=== PATIENT | female | born 1965 | race Caucasian/White ===

== ENCOUNTER 2022-12-16 12:47 | Emergency (ER) | payer OTHER, SELFPAY ==
[2022-12-16 12:58] VITALS: BP 153/80; PULSE 71; RESP 18; TEMP 36.6; O2SAT 96; BMI 35.5
--- NOTE | 2022-12-16 13:30 | ED.GENADULT ---
HPI - General Adult General Chief complaint: Back Injury/Pain Stated complaint: L side back/leg pain Time Seen by Provider: 12/16/22 12:48 History of Present Illness HPI narrative: Priya who goes by Mavis is a pleasant 57 year white female who presents with left low back pain and lateral hip pain and leg pain down to her lateral thigh calf. This started on Wednesday. No exacerbating injury. She had a visit with the [facility] yesterday and got an x-ray that showed no significant degenerative disc disease or fracture on x-ray, and she was given prednisone and a muscle relaxant. She has not noticed much effect she has been good him a in a good amount of pain. She has had no weakness in the leg, no bowel or bladder incontinence fever chills perineal numbness. She has had no history of back problems in the past. She has a regular walker, she was able to walk this morning and felt fairly decent. She has taken narcotics in the past the cause some crawling skin type feeling but had no true anaphylactic allergy. Related Data Previous Rx's Medication Instructions Recorded hydrocodone 7.5 mg-acetaminophen 1 tab PO Q8H PRN pain #14 tabs 12/16/22 325 mg tablet Allergies Allergy/AdvReac Type Severity Reaction Status Date / Time oxycodone Allergy Verified 12/16/22 12:57 Review of Systems Status of ROS: Reports: 6 or more systems reviewed and unremarkable except as noted in History and below Narrative: Patient does have history of Crohn's disease PFSH PFSH Social History What is your current living situation: I presently have a place to live Problems where you live: no known problems Problems where you live details: NA In the past 12 months, utilities in danger of being shut off: no In the past 12 mos, have been you worried that your food would run out before you had money to buy more?: never true In the past 12 mos, the food you bought just didn't last and you didn't have money to buy more?: never true Smoking Status: Never smoker Do you use any of these nicotine containing products: None Second hand tobacco smoke exposure: No How often do you have a drink containing alcohol: monthly or less How many standard drinks containing alcohol do you have on a typical day: 1 or 2 How often do you have six or more drinks on one occasion: Never AUDIT-C Alcohol total score: 1 Non-prescribed substance use: denies use Caffeine: No How often does anyone, including family, friends and others, physically hurt you: How often does anyone, including family, friends and others, insult or talk down to you: How often does anyone, including family, friends and others, threaten you with harm: How often does anyone, including family, friends and others, scream or curse at you: service: No Exam Narrative: Exam Narrative: Objective: Patient's vital signs look largely unremarkable other than slightly elevated systolic pressure Alert orient x3 no marked distress She has normal strength sensation lower extremities positive straight leg raise on the left, mild greater trochanteric bursitis tenderness on the left, some low back tenderness as well on the left No swelling or edema in the left lower extremity Const: Vital Signs, click to edit/add: Vital Signs - 24 hr 12/16/22 12:58 Temperature 98 F Pulse Rate [Pulse Oximeter] 71 Respiratory Rate 18 Blood Pressure [Ri ght Upper Arm] 153/80 H Pulse Oximetry 96 Oxygen Delivery Me thod Room Air Course Vital Signs Vital signs: Initial Vital Signs Temperature 98 F 12/16/22 12:58 Temperature Source Temporal Artery Scan 12/16/22 12:58 Pulse Rate 71 12/16/22 12:58 Pulse Rhythm Regular 12/16/22 12:58 Respiratory Rate 18 12/16/22 12:58 Blood Pressure 153/80 H 12/16/22 12:58 Blood Pressure Mean 104 12/16/22 12:58 Blood Pressure Position Supine 12/16/22 12:58 Pulse Oximetry 96 12/16/22 12:58 Oxygen Delivery Method Room Air 12/16/22 12:58 Vital Signs Temperature 98 F 12/16/22 12:58 Pulse Rate 71 12/16/22 12:58 Respiratory Rate 18 12/16/22 12:58 Blood Pressure 153/80 H 12/16/22 12:58 Pulse Oximetry 96 12/16/22 12:58 Oxygen Delivery Method Room Air 12/16/22 12:58 Temperature 98 F 12/16/22 12:58 Pulse Rate 71 12/16/22 12:58 Respiratory Rate 18 12/16/22 12:58 Blood Pressure 153/80 H 12/16/22 12:58 Pulse Oximetry 96 12/16/22 12:58 Oxygen Delivery Method Room Air 12/16/22 12:58 Medical Decision Making MDM Narrative Medical decision making narrative: [age] year white female with 3 day history of low back pain on the left left lateral hip and thigh and lateral calf pain consistent with radiculitis. Patient has had a reassuring x-ray. She has no worrisome symptoms such as fever chills weight loss bowel or bladder symptoms. No perineal numbness. At this point I think symptomatic management be appropriate will give her morphine 7.5 mg IM, she will continue the Medrol Dosepak that she is on currently, she has Celebrex at home and can take 200 mg 1-2 a day for the next week. Would hold off on physical therapy at this time but may start within 3-5 days if she is feeling better which is anticipated. If she gets worse or she has leg weakness or intractable pain then she needs the more urgent MRI scan of her back and she could return to the ED for this. She had her were comfortable plan. Position of comfort, regular walking would be appropriate at this time, ice to the back and regular basis Discharge Plan Discharge Clinical Impression: Lumbar radiculopathy Patient Disposition: Home w/ Parent or Adult Condition: Stable Additional Instructions: Position of comfort, regular walking, you will be sedated today from the medications so be careful with any walking, stairs, avoid driving or ladders. Recommend to use Celebrex once to twice a day for the next week. Preferably once a day, finish the Medrol Dosepak, you may avoid using the muscle relaxant at this time. Recheck with regular doctor as planned, return to ED if worsening pain in the leg, loss of control of bowel or bladder, or worsening back pain or leg pain. Activity Level: Light activity Discharge Diet: Regular Prescriptions: New hydrocodone-acetaminophen 7.5-325 mg tablet 1 tab PO Q8H PRN (Reason: pain) Qty: 14 0RF Follow Up/Referrals: Estefania Shelby MD [Primary Care Provider] - Stand Alone Forms: Smart Picture Tech Info Instructions
[2022-12-16] MEDS: MORPHINE 10 MG/ML inj 7.5 MG IM (13:41)
== END 2022-12-16 13:49 | disposition home or self-care (01) ==
PROVIDERS: Emergency Provider Family Medicine; PCP Family Medicine
DX: M54.16 Radiculopathy, lumbar region (principal); M54.50 Low back pain, unspecified
CPT/HCPCS: 96372; 99283; 99284; J2270

== ENCOUNTER 2022-12-16 14:40 | Observation (INO) | payer OTHER, SELFPAY ==
[2022-12-16] VITALS (8 sets, daily range): BP systolic 133–142; BP diastolic 79–86; PULSE 58–96; RESP 16–26; TEMP 36.6–37; O2SAT 92–97; BMI 36.0
--- NOTE | 2022-12-16 14:47 | CRLHL7_ITS ---
For Patients: As a result of the Century Cures Act, medical imaging exams and procedure reports are released immediately into your electronic medical record. You may view this report before your referring provider. If you have questions, please contact your health care provider. INDICATION: Low back and left leg pain. TECHNIQUE: Multiplanar multisequence noncontrast MR images acquired through the lumbar spine. COMPARISON: MRI lumbar spine 10/18/2015. FINDINGS: The lumbar lordosis is preserved. Vertebral heights maintained. No acute fracture or spondylolisthesis. No T1 hypointense marrow replacing lesions. Normal conus terminates at L1. T12-L1: No spinal canal or neural foraminal narrowing. L1-2: Mild disc degeneration. Annular bulge. No spinal canal or neural foraminal narrowing. L2-3: Mild disc degeneration. Sella, superiorly migrated left foraminal disc protrusion measuring 3 mm in short axis contacts they exiting left L2 nerve root. No spinal canal narrowing. Moderate left without right neural foraminal narrowing. L3-4: Aiyq-dr-clnpfnbw disc degeneration. Mild vertebral body edema. Shallow posterior disc bulge. Mild facet arthropathy. No spinal canal or neural foraminal narrowing. L4-5: Thuc-he-myedvaqg disc degeneration. Shallow posterior disc bulging and dorsal and endplate spondylitic ridging. Mild facet arthropathy. Worsening mild spinal canal and lateral recess narrowing. Mild bilateral neural foraminal narrowing. L5-S1: Annular bulge. Mild bilateral facet arthropathy. No spinal canal or neural foraminal narrowing. Sacroiliac joint degenerative changes. IMPRESSION: 1. Multilevel lumbar spondylosis without spinal canal stenosis. 2. At L2-3, shallow superiorly migrated left foraminal disc extrusion contacts the exiting left L2 nerve root and contributes to moderate left neural foraminal narrowing. 3. At L3-4, increased mild discogenic vertebral body edema. 4. At L4-5, worsening mild narrowing of the spinal canal and lateral recesses. Dictated by Vijay Davis MD @ 12/16/2022 8:51:18 PM (Electronically Signed)
--- NOTE | 2022-12-16 14:49 | ED.GENADULT ---
HPI - General Adult General Chief complaint: Back Injury/Pain Stated complaint: L side pain again Time Seen by Provider: 12/16/22 14:43 History of Present Illness HPI narrative: Patient is a 57-year-old female was here earlier in the day in with left back pain radiating around her hip and down her leg to her thigh and lateral calf. She had a positive straight leg raise. She felt better after morphine injection, was walking around to [employer] and had sudden onset of pain she had transient pain that caused her to have a syncopal episode. She did get hurt but she continues to have pain in her back and her leg. She felt nauseated, had increasing pain in her back. She has not had a history of back trouble in the past. Related Data Previous Rx's Medication Instructions Recorded hydrocodone 7.5 mg-acetaminophen 1 tab PO Q8H PRN pain #14 tabs 12/16/22 325 mg tablet Allergies Allergy/AdvReac Type Severity Reaction Status Date / Time oxycodone Allergy Verified 12/16/22 12:57 Review of Systems Status of ROS: Reports: 6 or more systems reviewed and unremarkable except as noted in History and below PFSH PFS Social History What is your current living situation: I presently have a place to live Problems where you live: no known problems Problems where you live details: NA In the past 12 months, utilities in danger of being shut off: no In the past 12 mos, have been you worried that your food would run out before you had money to buy more?: never true In the past 12 mos, the food you bought just didn't last and you didn't have money to buy more?: never true Smoking Status: Never smoker Do you use any of these nicotine containing products: None Second hand tobacco smoke exposure: No How often do you have a drink containing alcohol: monthly or less How many standard drinks containing alcohol do you have on a typical day: 1 or 2 How often do you have six or more drinks on one occasion: Never AUDIT-C Alcohol total score: 1 Non-prescribed substance use: denies use Caffeine: No How often does anyone, including family, friends and others, physically hurt you: How often does anyone, including family, friends and others, insult or talk down to you: How often does anyone, including family, friends and others, threaten you with harm: How often does anyone, including family, friends and others, scream or curse at you: service: No Exam Narrative: Exam Narrative: Objective: The patient is alert, in moderate distress and discomfort, noncyanotic Abdomen is benign lower extremity she is moving lower extremities She had a positive straight leg raise on the left earlier today She has no swelling or edema left lower extremity Const: Vital Signs, click to edit/add: Vital Signs - 24 hr 12/16/22 14:49 12/16/22 15:34 12/16/22 15:35 Pulse Rate 65 67 Pulse Rate [Pulse Oximeter] 58 L Respiratory Rate 26 H Blood Pressure 135/86 Blood Pressure [Le ft Upper Arm] 142/86 H Pulse Oximetry 95 94 97 Oxygen Delivery Me thod Room Air 12/16/22 16:00 12/16/22 16:01 12/16/22 17:35 Pulse Rate 69 67 70 Pulse Rate [Pulse Oximeter] Respiratory Rate Blood Pressure 133/81 141/84 H Blood Pressure [Le ft Upper Arm] Pulse Oximetry 94 92 94 Oxygen Delivery Me thod Course Vital Signs Vital signs: Initial Vital Signs Pulse Rate 58 L 12/16/22 14:49 Pulse Rhythm Regular 12/16/22 14:49 Pulse Strength 3+ Normal 12/16/22 14:49 Respiratory Rate 26 H 12/16/22 14:49 Blood Pressure 142/86 H 12/16/22 14:49 Blood Pressure Mean 104 12/16/22 14:49 Blood Pressure Position Right Lateral 12/16/22 14:49 Pulse Oximetry 95 12/16/22 14:49 Oxygen Delivery Method Room Air 12/16/22 14:49 Vital Signs Pulse Rate 58 L 12/16/22 14:49 Respiratory Rate 26 H 12/16/22 14:49 Blood Pressure 142/86 H 12/16/22 14:49 Pulse Oximetry 95 12/16/22 14:49 Oxygen Delivery Method Room Air 12/16/22 14:49 Temperature 98.6 F 12/16/22 20:22 Pulse Rate 96 12/16/22 20:22 Respiratory Rate 18 12/16/22 20:22 Blood Pressure 136/79 12/16/22 20:22 Pulse Oximetry 96 12/16/22 20:22 Oxygen Delivery Method Room Air 12/16/22 20:22 Medical Decision Making MDM Narrative Medical decision making narrative: Patient has symptoms consistent with a lumbar radiculopathy, she got little bit better with the IM injection of morphine, but at this point she has had recurrence and worsening symptoms. Does not appear to have focal weakness, no incontinence. I do think however a stat CT scan of her abdomen pelvis would be appropriate to make sure there is no intra-abdominal pathology or obvious issue intra-abdominal or in the pelvis. I think then subsequently lumbar MRI would be appropriate. Will get her IV steroids, IV pain medication, IV antiemetic, IV fluid. Disposition pending findings above a non lab studies and her clinical response. Addendum: Patient's CT of the abdomen pelvis looks largely unremarkable other than subtle punctate nonobstructing bilateral renal calculi. Mild fatty liver mild degenerative spinal changes. MRI scan pending. Patient's pain is significant better at this time Addendum: Patient's MRI sca I reviewed and looks a she does have a left lateral disc her lumbar region, formal radiology read is pending. Given the patient's prior response and severe pain I think admitting overnight for observation be appropriate Dr. Tomasz musa will follow. Lab Data Labs: Lab Results 12/16/22 Range/Units 15:25 WBC 10.37 (4.50-11.00) K/uL RBC 5.02 (4.00-5.20) m/uL Hgb 15.1 (12.0-16.0) gm/dL Hct 45.1 (33.0-51.0) % MCV 90 (80-100) fL MCH 30 (26-34) pg MCHC 34 (32-36) gm/dL RDW Coeff of Sarah 12.0 (11.5-15.5) % Plt Count 270 (140-440) K/uL Neut % (Auto) 87.3 H (42.0-72.0) % Lymph % (Auto) 11.2 L (20-44) % [place] % (Auto) 1.2 (0.0-11.0) % Eos % (Auto) 0.0 (0.0-7.0) % Baso % (Auto) 0.0 (0.0-3.0) % Neut # (Auto) 9.10 H (1.7-7.0) K/uL Lymph # (Auto) 1.20 (0.90-2.90) K/uL [place] # (Auto) 0.10 (0.00-0.90) K/UL Eos # (Auto) 0.00 (0.00-0.50) K/uL Baso # (Auto) 0.00 (0.00-0.30) K/uL Sodium 140 (135-149) mmol/L Potassium 4.3 (3.6-5.1) mmol/L Chloride 105 (96-114) mmol/L Carbon Dioxide 23 (20-32) mmol/L BUN 16 (7-30) mg/dL Creatinine 0.7 (0.5-1.5) mg/dL Estimated GFR 101 ml/min Glucose 193 H (60-115) mg/dL Calcium 10.1 (8.4-10.6) mg/dL C-Reactive Protein < 0.5 L (0.5-1.0) mg/dL Discharge Plan Discharge Clinical Impression: Lumbar radiculopathy, Acute low back pain Patient Disposition: Admitted As Inpatient
--- NOTE | 2022-12-16 14:51 | CRLHL7_ITS ---
For Patients: As a result of the Century Cures Act, medical imaging exams and procedure reports are released immediately into your electronic medical record. You may view this report before your referring provider. If you have questions, please contact your health care provider. INDICATION: Low-back pain. TECHNIQUE: CT abdomen and pelvis without contrast. COMPARISON: CT abdomen/pelvis dated 05/15/2021. FINDINGS: Lower chest: No focal consolidation. Evaluation of solid organs is limited secondary to lack of IV contrast administration. Liver: Hepatomegaly, liver measures up to 20 cm in cranial caudal dimension. Diffuse hepatic steatosis. Gallbladder and bile ducts: Postcholecystectomy. Pancreas: Stable punctate calcification of the uncinate process. No pancreatic duct dilation. Spleen: Scattered punctate calcified granulomas. Adrenal glands: Unremarkable. Kidneys: Subtle punctate nonobstructing calculi in the upper pole of the left kidney and interpolar region of the right kidney. No hydronephrosis bilaterally. Retroperitoneum: No lymphadenopathy. Bowel and mesentery: Bowel is nonobstructed. No significant ascites. No pneumoperitoneum. Bladder: Unremarkable for degree of distension. Reproductive organs: Posthysterectomy. Pelvic lymph nodes: No lymphadenopathy. Vessels: Unremarkable for unenhanced study. Abdominal wall: No acute abdominal wall abnormality. Bones: Multilevel degenerative changes of the spine. No suspicious/aggressive focal osseous lesion. IMPRESSION: 1. Subtle punctate nonobstructing bilateral renal calculi. No hydronephrosis bilaterally. 2. Hepatomegaly and diffuse hepatic steatosis. 3. Multilevel degenerative changes of the spine. Please note that all CT scans at this facility use dose modulation, iterative reconstruction, and/or weight-based dosing when appropriate to reduce radiation dose to as low as reasonably achievable. Dictated by Alba Frost MD @ 12/16/2022 5:25:49 PM (Electronically Signed)
[2022-12-16] MEDS: 0.9 % SODIUM CHLORIDE 1000 ml 1,000 ML 1200 ML IV (15:21)
[2022-12-16] MEDS: ONDANSETRON 2 MG/ML inj 4 MG IVP (15:22)
[2022-12-16] MEDS: METHYLPREDNISOLONE SOD SUCC 62.5 MG/ML (125) 125 MG IVP (15:22)
[2022-12-16] MEDS: HYDROmorphone 0.5 mg/0.5 ml inj 1 MG IVP (15:22)
[2022-12-16 15:44] LABS: Hematocrit 45.1 % (33.0-51.0); Hemoglobin* 15.1 gm/dL (12.0-16.0); Immature Granulocytes Abs Auto 0.03 K/uL (0.00-0.30); Immature Granulocytes Pct Auto 0.3 %; Lymphocytes Percent Auto 11.2 % (20-44); Mean Corpuscular HGB Conc 34 gm/dL (32-36); Mean Corpuscular Hemoglobin 30 pg (26-34); Mean Corpuscular Volume 90 fL (80-100); Monocytes Percent Auto 1.2 % (0.0-11.0); Neutrophils Percent Auto 87.3 % (42.0-72.0); Platelet Count* 270 K/uL (140-440); Red Blood Count 5.02 m/uL (4.00-5.20); White Blood Count* 10.37 K/uL (4.50-11.00)
[2022-12-16 15:51] LABS: Slide Review Reflex No
[2022-12-16 15:58] LABS: Chloride* 105 mmol/L (96-114); Potassium* 4.3 mmol/L (3.6-5.1); Sodium* 140 mmol/L (135-149)
[2022-12-16 16:00] LABS: Creatinine* 0.7 mg/dL (0.5-1.5); Estimated Glomerular Filt Rate 101 ml/min
[2022-12-16 16:01] LABS: Blood Urea Nitrogen* 16 mg/dL (7-30); Carbon Dioxide* 23 mmol/L (20-32); Glucose* 193 mg/dL (60-115)
[2022-12-16 16:02] LABS: Calcium* 10.1 mg/dL (8.4-10.6)
[2022-12-16 16:11] LABS: C Reactive Protein* < 0.5 mg/dL (0.5-1.0)
--- NOTE | 2022-12-16 16:19 | ED.NURSE ---
Head of bed raised due to pt's oxygen levels dropping to mid 80s. After raising the head of the bed, the pt began to vomit. Approx 150 mL of vomit. Pt states she now feels better. Dr. Goff informed @ [id number].
--- NOTE | 2022-12-16 19:19 | P.IMHP_ITS ---
Hospitalist- H&P: HPI History of Present Illness Date Seen: 12/16/22 Chief complaint: L side pain again Narrative: Priya Meza is a 57 year old female presenting for evaluation of lumbar back pain. The patient developed acute back pain Wednesday while vacuuming. She denies falls or any other injury. She endorses lumbar sharp radicular pain radiating to her left leg. She denies loss of bowel or bladder function. She denies chest pain, sob, nausea, vomiting, fever. She was seen in the ED earlier today and discharged but returned due to worsening back pain. In the ED Multilevel lumbar spondylosis without spinal canal stenosis. At L2-3, shallow superiorly migrated left foraminal disc extrusion contacts the exiting left L2 nerve root and contributes to moderate left neural foraminal narrowing. At L3-4, increased mild discogenic vertebral body edema. At L4-5, worsening mild narrowing of the spinal canal and lateral recesses. The patient was subsequently admitted for pain management. MRI Lumbar Spine IMPRESSION: 1. Multilevel lumbar spondylosis without spinal canal stenosis. 2. At L2-3, shallow superiorly migrated left foraminal disc extrusion contacts the exiting left L2 nerve root and contributes to moderate left neural foraminal narrowing. 3. At L3-4, increased mild discogenic vertebral body edema. 4. At L4-5, worsening mild narrowing of the spinal canal and lateral recesses. ct ap IMPRESSION: 1. Subtle punctate nonobstructing bilateral renal calculi. No hydronephrosis bilaterally. 2. Hepatomegaly and diffuse hepatic steatosis. 3. Multilevel degenerative changes of the spine. Review of Systems Status of ROS: Reports: 10 or more systems reviewed and unremarkable except as noted in History and below [facility] Social History What is your current living situation: I presently have a place to live Problems where you live: no known problems Problems where you live details: NA In the past 12 months, utilities in danger of being shut off: no In the past 12 mos, have been you worried that your food would run out before you had money to buy more?: never true In the past 12 mos, the food you bought just didn't last and you didn't have money to buy more?: never true Smoking Status: Never smoker Do you use any of these nicotine containing products: None Second hand tobacco smoke exposure: No How often do you have a drink containing alcohol: monthly or less How many standard drinks containing alcohol do you have on a typical day: 1 or 2 How often do you have six or more drinks on one occasion: Never AUDIT-C Alcohol total score: 1 Non-prescribed substance use: denies use Caffeine: No How often does anyone, including family, friends and others, physically hurt you : How often does anyone, including family, friends and others, insult or talk down to you: How often does anyone, including family, friends and others, threaten you with harm: How often does anyone, including family, friends and others, scream or curse at you: service: No Meds Home Medications and Allergies Allergies Allergy/AdvReac Type Severity Reaction Status Date / Time oxycodone Allergy Verified 12/16/22 12:57 Exam Narrative: Exam Narrative: Gen: no acute distress HEENT: NCAT EOMI mmm Neck: Supple CV: RRR normal s1 s2 Lungs: CTAB Abd: Soft,nt, nd Neuro: Alert, oriented, CN grossly intact; nonfocal screening?exam Psych: appropriate affect MSK: age appropriate muscle mass Skin; Warm, dry no rash on face Const: Vital Signs, click to edit/add: Vital Signs - 24 hr 12/16/22 14:49 12/16/22 15:34 12/16/22 15:35 Pulse Rate 65 67 Pulse Rate [Pulse Oximeter] 58 L Respiratory Rate 26 H Blood Pressure 135/86 Blood Pressure [Le ft Upper Arm] 142/86 H Pulse Oximetry 95 94 97 [facility] 12/16/22 16:00 12/16/22 16:01 12/16/22 17:35 Pulse Rate 69 67 70 Pulse Rate [Pulse Oximeter] Respiratory Rate Blood Pressure 133/81 141/84 H Blood Pressure [Le ft Upper Arm] Pulse Oximetry 94 92 94 [facility]: Result Labs Labs: Short CBC 12/16/22 Range/Units 15:25 WBC 10.37 (4.50-11.00) K/uL Hgb 15.1 (12.0-16.0) gm/dL Hct 45.1 (33.0-51.0) % Plt Count 270 (140-440) K/uL [facility] 12/16/22 15:25 Sodium 140 Potassium 4.3 Chloride 105 Carbon Dioxide 23 BUN 16 Creatinine 0.7 Glucose 193 H Calcium 10.1 Assessment and Plan Assessment and plan (1) Acute low back pain: Status: Acute (2) Lumbar radiculopathy: Status: Acute Plan Assessment:Priya Meza is a 57 year old female presenting for evaluation of lumbar back pain. The patient developed acute back pain Wednesday while vacuming. She denies falls or any other injury. She endorses lumbar sharp radicular pain radiating to her left leg. She denies loss of bowel or bladder function. She was seen in the ED earlier today and discharged but returned due to worsening back pain. In the ED Multilevel lumbar spondylosis without spinal canal stenosis. At L2-3, shallow superiorly migrated left foraminal disc extrusion contacts the exiting left L2 nerve root and contributes to moderate left neural foraminal narrowing. At L3-4, increased mild discogenic vertebral body edema. At L4-5, worsening mild narrowing of the spinal canal and lateral recesses. The patient was subsequently admitted for pain management. Assessment 1. Lumbar back pain Plan -admit to observation -pain control -prednisone -therapy evaluation Code-full DVt ppx-low risk obs status
--- NOTE | 2022-12-16 19:39 | ED.NURSE ---
nurse to nurse report given to lennox GALEAS. Patient going to room 259
[2022-12-16] MEDS: CYCLOBENZAPRINE HCL 10 MG TABLET PO (19:56)
[2022-12-16] MEDS: predniSONE 20 MG TABLET 40 MG PO (19:56)
[2022-12-16] MEDS: ACETAMINOPHEN 325 MG TABLET 650 MG PO (19:56)
[2022-12-16] MEDS: KETOROLAC 30 MG/ML inj IVP (19:56)
[2022-12-16] MEDS: HYDROmorphone 0.5 mg/0.5 ml inj IVP (21:45)
[2022-12-16] MEDS: SODIUM CHLORIDE 0.9 % (FLUSH) 10 ML SYRINGE 5 ML IVF (21:51)
--- NOTE | 2022-12-16 22:32 | PC.NURSE ---
Admit [id number]- Patient arrives to floor via wheelchair with . She rates pain 4/10, though states it was increasing upon arrival. PRN pain medication given. She states it did not give that much relief. Other PRN pain medication administered- see eMAR.
--- NOTE | 2022-12-16 22:48 | PC.NURSE ---
Admit [id number]- Patient arrives to unit via wheelchair with . She rates pain at 4/10, though states it is increasing. PRN pain medication given with seemingly little effect. Additional PRN pain medication administered- see eMAR. She is up ad lana. Currently appears restful.
[2022-12-17 02:00] VITALS: BP 150/85; PULSE 70; RESP 16; TEMP 36.6; O2SAT 97
[2022-12-17] MEDS: KETOROLAC 30 MG/ML inj IVP ×2 (02:08→07:38)
[2022-12-17] MEDS: CYCLOBENZAPRINE HCL 10 MG TABLET PO ×2 (02:08→08:55)
[2022-12-17] MEDS: SODIUM CHLORIDE 0.9 % (FLUSH) 10 ML SYRINGE 5 ML IVF ×2 (02:09→07:39)
--- NOTE | 2022-12-17 06:55 | PC.NURSE ---
[id number]: Patient pleasant and cooperative. PRN Toradol x1, Flexeril x1 and Aqua K pad for pain management. Independent in room.
[2022-12-17 07:00] VITALS: BP 129/75; PULSE 68; RESP 16; TEMP 37.1; O2SAT 96
[2022-12-17] MEDS: predniSONE 20 MG TABLET 40 MG PO (07:24)
[2022-12-17] MEDS: ACETAMINOPHEN 325 MG TABLET 650 MG PO (07:36)
[2022-12-17 11:00] VITALS: BP 126/72; PULSE 64; RESP 16; TEMP 36.9; O2SAT 96
--- NOTE | 2022-12-17 11:08 | REH.OT ---
Orders received for evaluate and treat. Pt demo'd functional transfers and toileting I(ly), reports pain /. Pt reports no concerns with I/ADL completion, just that pain is limiting factor. Skilled OT not needed at this time, recommend f/u with OP PT for pain management. Safe to d/c home at this time.
--- NOTE | 2022-12-17 11:11 | P.DS_ITS ---
DS: Providers Provider Date of admission: 12/16/22 19:42 Primary care physician: Estefania Shelby MD Admitting Clinician: Rayray Enamorado MD Consults: 12/16/22 21:57 Consult to Occupational Therapy [CONS] Routine Comment: Reason(s) for OT Consult:: Evaluate and Treat Any Restrictions?:: No Restrictions Consult to Physical Therapy [CONS] Routine Comment: Reason(s) for PT Consult:: Evaluate and Treat Any Restrictions?:: No Restrictions Attending Physician on discharge: Rayray Enamorado MD DS: Summary Time Spent with Patient Time attestation: Total time spent providing and/or coordinating discharge services: Exam Const: Vital Signs, click to edit/add: Vital Signs - 24 hr 12/16/22 14:49 12/16/22 15:34 12/16/22 15:35 Temperature Pulse Rate 65 67 Pulse Rate [Pulse Oximeter] 58 L Respiratory Rate 26 H Blood Pressure 135/86 Blood Pressure [Le ft Upper Arm] 142/86 H Blood Pressure [Ri ght Arm] Pulse Oximetry 95 94 97 Oxygen Delivery Me thod Room Air 12/16/22 16:00 12/16/22 16:01 12/16/22 17:35 Temperature Pulse Rate 69 67 70 Pulse Rate [Pulse Oximeter] Respiratory Rate Blood Pressure 133/81 141/84 H Blood Pressure [Le ft Upper Arm] Blood Pressure [Ri ght Arm] Pulse Oximetry 94 92 94 Oxygen Delivery Me thod 12/16/22 20:22 12/16/22 23:37 12/17/22 02:00 Temperature 98.6 F 97.8 F 97.8 F Pulse Rate Pulse Rate [Pulse Oximeter] 96 69 70 Respiratory Rate 18 16 16 Blood Pressure Blood Pressure [Le ft Upper Arm] Blood Pressure [Ri ght Arm] 136/79 136/85 150/85 H Pulse Oximetry 96 93 97 Oxygen Delivery Me thod Room Air Room Air Room Air 12/17/22 07:00 12/17/22 07:00 Temperature 98.7 F Pulse Rate Pulse Rate [Pulse Oximeter] 68 68 Respiratory Rate 16 16 Blood Pressure Blood Pressure [Le ft Upper Arm] Blood Pressure [Ri ght Arm] 129/75 Pulse Oximetry 96 Oxygen Delivery Me thod Room Air DS: Data Data Completed and Pending Labs on day of discharge: Labs from last 24 hours 12/16/22 15:25 WBC 10.37 RBC 5.02 Hgb 15.1 Hct 45.1 MCV 90 MCH 30 MCHC 34 RDW Coeff of Sarah 12.0 Plt Count 270 Neut % (Auto) 87.3 H Lymph % (Auto) 11.2 L [place] % (Auto) 1.2 Eos % (Auto) 0.0 Baso % (Auto) 0.0 Neut # (Auto) 9.10 H Lymph # (Auto) 1.20 [place] # (Auto) 0.10 Eos # (Auto) 0.00 Baso # (Auto) 0.00 Sodium 140 Potassium 4.3 Chloride 105 Carbon Dioxide 23 BUN 16 Creatinine 0.7 Estimated GFR 101 Glucose 193 H Calcium 10.1 C-Reactive Protein < 0.5 L Discharge Plan Discharge Disposition: Home, Self-Care Date of Admission: 12/16/22 19:42 Attending Provider on Discharge: Rayray Enamorado Primary Care Provider: Estefania Shelby Condition: Improved Anticipated Discharge Date/Time: 12/17/22 11:09 Discharge Medications: No Action hydrocodone-acetaminophen 7.5-325 mg tablet 1 tab PO Q8H PRN (Reason: pain) Qty: 14 0RF Discharge Orders: Discharge Order (Routine); Ordered 12/17/22 Ordered By: Rayray Enamorado Activity Level: Activity as Tolerated Diet Detail: Resume previous diet Follow Up Appointments: Estefania Shelby MD [Primary Care Provider] - (Post hospital follow up 5 days post hospital follow up referral to [facility]) [facility] Inst[facility]
--- NOTE | 2022-12-17 11:36 | P.DS_ITS ---
DS: Providers Provider Date Seen: 12/17/22 Date of admission: 12/16/22 19:42 Primary care physician: Estefania Shelby MD Admitting Clinician: Rayray Enamorado MD Consults: 12/16/22 21:57 Consult to Occupational Therapy [CONS] Routine Comment: Reason(s) for OT Consult:: Evaluate and Treat Any Restrictions?:: No Restrictions Consult to Physical Therapy [CONS] Routine Comment: Reason(s) for PT Consult:: Evaluate and Treat Any Restrictions?:: No Restrictions Attending Physician on discharge: Rayray Enamorado MD Date of Discharge: 12/17/22 DS: Diagnosis Discharge Diagnosis (1) Acute low back pain: Status: Acute (2) Lumbar radiculopathy: Status: Acute DS: Summary Hospital Course Hospital Course: Assessment:Priya Meza is a 57 year old female presenting for evaluation of lumbar back pain. The patient developed acute back pain Wednesday while vacuming. She denies falls or any other injury. She endorses lumbar sharp radicular pain radiating to her left leg. She denies loss of bowel or bladder function. She was seen in the ED earlier today and discharged but returned due to worsening back pain. In the ED?Multilevel lumbar spondylosis without spinal canal stenosis. At L2-3, shallow superiorly migrated left foraminal disc extrusion contacts the exiting left L2 nerve root and contributes to moderate left neural foraminal narrowing. At L3-4, increased mild discogenic vertebral body edema. At L4-5, worsening mild narrowing of the spinal canal and lateral recesses. The patient was subsequently admitted for pain management. Assessment 1. Lumbar back pain Hospital Course The patient was admitted under observation status. She was evaluated by therapy team. She was started on steroids. She will be discharging with norco and medrol dose pack (prescribed from ED) as well as needed toradol and flexeril. I would like her to follow up with PCP 3-5 days post hospital follow up. I anticipate she will need referral to Ortho Spine for follow up of MRI findings. MRI Lumbar Spine IMPRESSION: 1. Multilevel lumbar spondylosis without spinal canal stenosis. 2. At L2-3, shallow superiorly migrated left foraminal disc extrusion contacts the exiting left L2 nerve root and contributes to moderate left neural foraminal narrowing. 3. At L3-4, increased mild discogenic vertebral body edema. 4. At L4-5, worsening mild narrowing of the spinal canal and lateral recesses. ct ap IMPRESSION: 1. Subtle punctate nonobstructing bilateral renal calculi. No hydronephrosis bilaterally. 2. Hepatomegaly and diffuse hepatic steatosis. 3. Multilevel degenerative changes of the spine. Status at Discharge Overall status at discharge: patient is progressing back to baseline Time Spent with Patient Time attestation: Total time spent providing and/or coordinating discharge services: Time spent: Greater than 30 minutes Exam Narrative: Exam Narrative: Gen: no acute dist ress HEENT: NCAT E RYAN mmm Neck: Supp le CV: RRR normal s1 s2 Lungs: CTAB Abd: Soft,nt, nd N euro: Alert, orien librado, CN grossly in tact; nonfocal scr eening?exam Psych: appropriate affec t MSK: age appropr iate muscle mass S kin; Warm, dry no rash on face Const: Vital Signs, click to edit/add: Vital Signs - 24 hr 12/16/22 14:49 12/16/22 15:34 12/16/22 15:35 Temperature Pulse Rate 65 67 Pulse Rate [Pulse Oximeter] 58 L Respiratory Rate 26 H Blood Pressure 135/86 Blood Pressure [Le ft Upper Arm] 142/86 H Blood Pressure [Ri ght Arm] Pulse Oximetry 95 94 97 Oxygen Delivery Me thod Room Air 12/16/22 16:00 12/16/22 16:01 12/16/22 17:35 Temperature Pulse Rate 69 67 70 Pulse Rate [Pulse Oximeter] Respiratory Rate Blood Pressure 133/81 141/84 H Blood Pressure [Le ft Upper Arm] Blood Pressure [Ri ght Arm] Pulse Oximetry 94 92 94 Oxygen Delivery Me thod 12/16/22 20:22 12/16/22 23:37 12/17/22 02:00 Temperature 98.6 F 97.8 F 97.8 F Pulse Rate Pulse Rate [Pulse Oximeter] 96 69 70 Respiratory Rate 18 16 16 Blood Pressure Blood Pressure [Le ft Upper Arm] Blood Pressure [Ri ght Arm] 136/79 136/85 150/85 H Pulse Oximetry 96 93 97 Oxygen Delivery Me thod Room Air Room Air Room Air 12/17/22 07:00 12/17/22 07:00 Temperature 98.7 F Pulse Rate Pulse Rate [Pulse Oximeter] 68 68 Respiratory Rate 16 16 Blood Pressure Blood Pressure [Le ft Upper Arm] Blood Pressure [Ri ght Arm] 129/75 Pulse Oximetry 96 Oxygen Delivery Me thod Room Air DS: Data Data Completed and Pending Labs on day of discharge: Labs from last 24 hours 12/16/22 15:25 WBC 10.37 RBC 5.02 Hgb 15.1 Hct 45.1 MCV 90 MCH 30 MCHC 34 RDW Coeff of Sa[place] 12.0 Plt Count 270 Neut % (Auto) 87.3 H Lymph % (Auto) 11.2 L [place] % (Auto) 1.2 Eos % (Auto) 0.0 Baso % (Auto) 0.0 Neut # (Auto) 9.10 H Lymph # (Auto) 1.20 [place] # (Auto) 0.10 Eos # (Auto) 0.00 Baso # (Auto) 0.00 Sodium 140 Potassium 4.3 Chloride 105 Carbon Dioxide 23 BUN 16 Creatinine 0.7 Estimated GFR 101 Glucose 193 H Calcium 10.1 C-Reactive Protein < 0.5 L Discharge Plan Discharge Disposition: Home, Self-Care Date of Admission: 12/16/22 19:42 Attending Provider on Discharge: Rayray Enamorado Primary Care Provider: Estefania Shelby Condition: Improved Anticipated Discharge Date/Time: 12/17/22 11:09 Discharge Medications: New cyclobenzaprine 5 mg tablet 5 mg PO TID PRN (Reason: muscle spasm) Qty: 15 0RF ketorolac 10 mg tablet 10 mg PO BID PRN (Reason: pain) 3 Days Qty: 7 0RF Continued methylprednisolone 4 mg tablets,dose pack PO Rx Instructions: as directed on package levothyroxine 112 mcg tablet 112 mcg PO QAM escitalopram oxalate 10 mg tablet 5 mg PO QAM trazodone 50 mg tablet 50 mg PO HS hydrocodone-acetaminophen 7.5-325 mg tablet 1 tab PO Q8H PRN (Reason: pain) Qty: 14 0RF Discontinued celecoxib 200 mg capsule 200 mg PO BID PRN (Reason: joint pain) tizanidine 4 mg tablet 4 mg PO Q6H PRN (Reason: muscle spasm) Discharge Orders: Discharge Order (Routine); Ordered 12/17/22 Ordered By: Rayray Enamorado Patient Education: Cyclobenzaprine (By mouth), Ketorolac (By mouth) (Toradol), Back Pain (GEN) Activity Level: Activity as Tolerated Diet Detail: Resume previous diet Follow Up Appointments: Estefania Shelby MD [Primary Care Provider] - 12/29/22 10:05 am ([facility] follow-up and to discuss referral to Ortho Spine.) Forms: [employer] Info Instructions
[2022-12-17 12:06] VITALS: BP 141/84; PULSE 70; RESP 16; TEMP 36.9
--- NOTE | 2022-12-17 12:56 | PC.NURSE ---
All concerns addressed. Patient vitally stable. PIV discontinued. Patient discharged to home.
== END 2022-12-17 12:52 | disposition home or self-care (01) ==
LOC: ED 19:14 → MEDSURG 19:43
PROVIDERS: Admitting Provider Hospitalist; Emergency Provider Family Medicine; PCP Family Medicine; Visit Provider Hospitalist
DX: M54.50 Low back pain, unspecified (principal); M54.16 Radiculopathy, lumbar region
CPT/HCPCS: 36415; 72148; 74176; 80048; 85025; 86140; 96361; 96374; 96375; 96376; 97116; 97161; 99283; 99284; A9270; G0378; G0379; J1170; J1885; J2270; J2405; J2930; J7030; J7512

== ENCOUNTER 2022-12-22 11:11 | Outpatient (CLI) | payer OTHER, SELFPAY | END 2022-12-22 11:12 | disposition home or self-care (01) | LOC: INJ CL 11:12 | PROVIDERS: PCP Family Medicine; Visit Provider Family Medicine | DX: M51.26 Other intervertebral disc displacement, lumbar region (principal); M54.16 Radiculopathy, lumbar region | CPT/HCPCS: 64483; 64484; J1100; Q9966 ==

== ENCOUNTER 2023-02-22 08:00 | Outpatient (RCR) | payer OTHER, SELFPAY | END 2023-04-29 09:05 | disposition home or self-care (01) | PROVIDERS: PCP Family Medicine; Visit Provider Family Medicine | DX: M54.17 Radiculopathy, lumbosacral region (principal); M25.552 Pain in left hip; M54.50 Low back pain, unspecified; M54.16 Radiculopathy, lumbar region; Z51.89 Encounter for other specified aftercare | CPT/HCPCS: 97012; 97110; 97140; 97162 ==

== ENCOUNTER 2024-03-27 09:45 | Outpatient (RCR) | payer BC, SELFPAY | END 2024-05-15 14:42 | disposition home or self-care (01) | PROVIDERS: PCP Family Medicine; Visit Provider Physician Assistant | DX: M25.512 Pain in left shoulder (principal); Z51.89 Encounter for other specified aftercare | CPT/HCPCS: 97035; 97110; 97140; 97162 ==